=== PATIENT | female | born 1940 | race African-American/Black ===

== ENCOUNTER 2019-05-03 09:53 | Emergency (ER) | payer OTHER ==
[2019-05-03 10:06] VITALS: TEMP 97.8; BMI 20.9
--- NOTE | 2019-05-03 10:45 | PDOC ---
History of Present Illness - General Chief Complaint: Lightheaded Stated Complaint: DIZZNESS Time Seen by Provider: 05/03/19 10:45 History Source: Patient Exam Limitations: No Limitations - History of Present Illness Initial Comments: 79-year-old female with past medical history of hypertension, diabetes, COPD on home oxygen 2L at night time presented to the emergency department for room spinning episode for two days. Patient report on Monday night she ate a meal they had a lot of salt in it, had only to a couple bites, did not eat the rest of the night. She reported later that night she felt room spinning episodes that would occur more so when she rolled around in bed, or when she would stand up from bed. She reported morning around six or seven in the morning she felt the need to go to the bathroom, still felt the dizziness but figured she could hold onto something and not fall. She reported when she made it to the bathroom the rooms spinning episode occurred, causing her to fall backwards onto the ground. She reported during the fall she hit her right arm on a fan, but denied head injury. She denied headache, neck pain, back pain, chest pain, abdominal pain, upper or lower extremity pain, LOC, vomiting. She reported this in a minute dizziness is still occurring, prompted her to come see her and to apartment. She denied any recent illnesses, ringing in the ears, weakness, numbness, changes to gait, sensory change. ROS General: denied fever, chills, generalized weakness. HEENT: denied sore throat, rhinorrhea, ear pain. Cardiovascular: denied chest pain, palpitations, syncope, diaphoresis. Respiratory: denied shortness of breath, cough, sputum production, hemoptysis. Gastrointestinal: denied abdominal pain, nausea, vomiting, diarrhea, constipation, blood in stool. Genitourinary: denied dysuria, increased urinary frequency, hematuria, urinary incontinence, flank pain. Back: denied back pain. Musculoskeletal: denied joint pain, muscle pain, joint swelling. Neurological: admitted to dizziness. denied headache, numbness, tingling, weakness. Integumentary: denied rash, laceration, abrasion. Hematologic/Lymphatic: denied bruising or bleeding. PE Constitutional: Well-nourished, Well-developed, appearing stated age. HEENT: head is normocephalic, atraumatic. EOMI. PERRLA. Neck: supple. Full ROM. no midline C-spine tenderness to palpation. Cardiovascular: regular heart rhythm. no murmurs. no pericardial friction rub. Respiratory: clear to auscultation bilaterally. no crackles, rhonchi or wheezing. no stridor. Gastrointestinal: soft, nontender. normal bowel sounds. no rebound, guarding, masses. Extremities: peripheral pulses intact. no lower extremity edema. Neurological: alert. oriented x3. CN2-12 intact. 5/5 strength all extremities. full sensation all extremities and bilateral face. romberg negative. no ataxia. Psych: awake, alert, oriented x3. follows commands. answers questions appropriately. Elena Brady-Larue: reproduction of symptoms with looking rightward, right-beating nystagmus present. no reproduction of symptoms or nystagmus with looking leftward. NIH Stroke Scale - Last Known Well Date/Time & Onset Date Last Known Well: 05/01/19 Time Last Known Well: 18:00 - Initial Evaluation Level of consciousness: Alert Ask patient the month and their age: Answers both correctly Ask patient to open & close eyes; make fist and let go: Obeys both correctly Best gaze (horizontal eye movement): Normal Visual field testing: No visual field loss Facial paresis (Show teeth/raise eyebrows/close eyes tight): Normal symmetrical movement Motor Function: Left Arm: Normal Motor Function: Right Arm: Normal (extends arm 90 (or 45) degrees for 10 seconds without drift Motor Function: Left Leg: Normal (extends leg 30 degrees for 5 seconds without drift) Motor Function: Right Leg: Normal (extends leg 30 degrees for 5 seconds without drift) Limb Ataxia: No ataxia Sensory(Use pinprick test arms,legs,trunk,face/side to side): Normal Best language (Describe picture, name items, read sentences): No Aphasia Dysarthria (read several words): Normal articulation Extinction and Inattention: No abnormality - Total Score NIH Stroke Scale Score: 0 Past History - Past Medical History Allergies/Adverse Reactions: Allergies Allergy/AdvReac Type Severity Reaction Status Date / Time No Known Allergies Allergy Verified 05/03/19 10:08 Home Medications: Ambulatory Orders Calcium Carbonate/Vitamin D3 [Oyster Shell 500 mg + Vit D Tb] 1 each PO DAILY Cholecalciferol (Vitamin D3) [Vitamin D3] 5,000 unit PO DAILY 07/17/15 Diltiazem Cd [Cardizem Cd -] 180 mg PO DAILY 07/17/15 Furosemide [Lasix -] 40 mg PO BID 07/17/15 Losartan Potassium [Cozaar] 100 mg PO DAILY 07/17/15 Pantoprazole Sodium [Protonix] 40 mg PO DAILY 07/17/15 Potassium Chloride 10 meq PO BID 07/17/15 Ubidecarenone/Vit E Acet [Co Q-10 100 mg Softgel] 1 each PO DAILY 07/17/15 Meclizine HCl [Antivert -] 25 mg PO TID PRN #15 tablet 05/03/19 Rosuvastatin Calcium [Crestor] 40 mg PO HS 05/03/19 Umeclidinium [place] [Incruse Ellipta] 62.5 mcg IH ASDIR 05/03/19 Cardiac Disorders: Yes (afib) COPD: Yes Diabetes: Yes HTN: Yes Hypercholesterolemia: Yes - Psycho Social/Smoking Cessation Hx Smoking History: Unknown if ever smoked Have you smoked in the past 12 months: No Hx Alcohol Use: No Drug/Substance Use Hx: No Substance Use Type: None Hx Substance Use Treatment: No *Physical Exam - Vital Signs Last Vital Signs Temp Pulse Resp BP Pulse Ox 97.8 F 73 18 119/56 L 92 L 05/03/19 10:00 05/03/19 10:00 05/03/19 10:00 05/03/19 10:00 05/03/19 10:00 ED Treatment Course - LABORATORY CBC & Chemistry Diagram: 05/03/19 11:00 05/03/19 11:00 Medical Decision Making - Medical Decision Making 79 year old with above PMH presented to ED for room spinning episodes occuring for two days, also had recent fall. Initial Vital Signs Temp Pulse Resp BP Pulse Ox 97.8 F 73 18 119/56 L 92 L 05/03/19 10:00 05/03/19 10:00 05/03/19 10:00 05/03/19 10:00 05/03/19 10:00 Afebrile. No tachycardia. No tachypnea. Mild diastolic hypotension. Hypoxia on room air, hx COPD, on O2 at home. Labs ordered: CBC, CMP, troponin, UA/UC Imaging ordered: CT head Medications ordered: meclizine 25 mg PO once, normal saline bolus 1000 cc once EKG performed at 0959: rate 69, regular rhythm, normal axis, normal intervals, QTc 437, nonspecific ST changes. 05/03/19 12:09 Laboratory Last Values WBC 5.2 K/mm3 (4.0-10.0) 05/03/19 11:00 RBC 3.91 M/mm3 (3.60-5.2) 05/03/19 11:00 Hgb 12.2 GM/dL (10.7-15.3) 05/03/19 11:00 Hct 37.8 % (32.4-45.2) D 05/03/19 11:00 MCV 96.6 fl (80-96) H 05/03/19 11:00 MCH 31.1 pg (25.7-33.7) 05/03/19 11:00 MCHC 32.1 g/dl (32.0-36.0) 05/03/19 11:00 RDW 12.9 % (11.6-15.6) 05/03/19 11:00 Plt Count 200 K/MM3 (134-434) 05/03/19 11:00 MPV 10.2 fl (7.5-11.1) D 05/03/19 11:00 Absolute Neuts (auto) 3.7 K/mm3 (1.5-8.0) 05/03/19 11:00 Neutrophils % 71.2 % (42.8-82.8) 05/03/19 11:00 Lymphocytes % 19.9 % (8-40) 05/03/19 11:00 Monocytes % 7.8 % (3.8-10.2) 05/03/19 11:00 Eosinophils % 0.7 % (0-4.5) 05/03/19 11:00 Basophils % 0.4 % (0-2.0) 05/03/19 11:00 Nucleated RBC % 0 % (0-0) 05/03/19 11:00 Sodium 140 mmol/L (136-145) 05/03/19 11:00 Potassium 4.0 mmol/L (3.5-5.1) 05/03/19 11:00 Chloride 106 mmol/L (98-107) 05/03/19 11:00 Carbon Dioxide 30 mmol/L (21-32) 05/03/19 11:00 Anion Gap 5 MMOL/L (8-16) L 05/03/19 11:00 BUN 17.0 mg/dL (7-18) 05/03/19 11:00 Creatinine 1.0 mg/dL (0.55-1.3) 05/03/19 11:00 Est GFR (CKD-EPI)AfAm 62.05 05/03/19 11:00 Est GFR (CKD-EPI)NonAf 53.54 05/03/19 11:00 Random Glucose 139 mg/dL (74-106) H 05/03/19 11:00 Calcium 8.9 mg/dL (8.5-10.1) 05/03/19 11:00 Total Bilirubin 0.5 mg/dL (0.2-1) 05/03/19 11:00 AST 28 U/L (15-37) 05/03/19 11:00 ALT 31 U/L (13-61) 05/03/19 11:00 Alkaline Phosphatase 81 U/L (45-117) 05/03/19 11:00 Troponin I < 0.02 ng/ml (0.00-0.05) 05/03/19 11:00 Total Protein 7.4 g/dl (6.4-8.2) 05/03/19 11:00 Albumin 3.6 g/dl (3.4-5.0) 05/03/19 11:00 Urine Color Yellow 05/03/19 11:19 Urine Appearance Clear 05/03/19 11:19 Urine pH 7.5 (5.0-8.0) 05/03/19 11:19 Ur Specific [place] 1.015 (1.010-1.035) 05/03/19 11:19 Urine Protein Negative (NEGATIVE) 05/03/19 11:19 Urine Glucose (UA) Negative (NEGATIVE) 05/03/19 11:19 Urine Ketones Negative (NEGATIVE) 05/03/19 11:19 Urine Blood Negative (NEGATIVE) 05/03/19 11:19 Urine Nitrite Negative (NEGATIVE) 05/03/19 11:19 Urine Bilirubin Negative (NEGATIVE) 05/03/19 11:19 Urine Urobilinogen 1.0 mg/dL (0.2-1.0) 05/03/19 11:19 Ur Leukocyte Esterase Trace (NEGATIVE) 05/03/19 11:19 Urine WBC (Auto) 3 /hpf (0-5) 05/03/19 11:19 Urine RBC (Auto) 0 /hpf (0-4) 05/03/19 11:19 Urine Casts (Auto) 1 /lpf (0-8) 05/03/19 11:19 U Epithel Cells (Auto) 0.8 /HPF (0-5/HPF) 05/03/19 11:19 Urine Bacteria (Auto) 3.6 /hpf (NEGATIVE) 05/03/19 11:19 Blood Type Cancelled 05/03/19 11:20 Antibody Screen Cancelled 05/03/19 11:20 CT head report: Name: RAGHU GUERRERO DEPARTMENT OF RADIOLOGY Phys: Kiah Barber RESIDENT : 1940 Age: 79 Sex: F [facility] Acct: [id number] Loc: [address] Exam Date: 05/03/19 Status: [place] [address] Unit Number: [id number] EXAM#: TYPE/EXAM: RESULT: [id number] CT/HEAD CT WITHOUT CONTRAST REASON FOR THE STUDY. Status post fall yesterday. CT SCAN OF THE BRAIN C-. COMPARED STUDY. None. FINDINGS. Serial axial images of the brain were obtained from foramen magnum to the cranial vertex without intravenous contrast with coronal, sagittal reconstruction. There is no evidence of acute subarachnoid hemorrhage, acute intra-axial or extra-axial fluid collection consistent with subdural or epidural hematoma. No mass effect, midline shift, acute territorial ischemic changes, herniation or edema is present. Normal [place] matter white matter differentiation. The cortical sulci, sylvian fissures, perimesencephalic cisterns are not effaced. Loss of the volume of the brain parenchyma with age- related involutional changes. Examination of the bone windows show no fracture. The visualized paranasal sinuses and mastoid air cells are clear. Intracranial vascular calcifications are noted IMPRESSION. No evidence of acute intracranial hemorrhage, edema, midline shift, mass effect, or skull fracture. No CT evidence of acute territorial ischemic changes. Reported By: Antonio Stapleton MD 05/03/19 1158 05/03/19 12:17 Results explained to patient and family at bedside. Pt reported room-spinning much improved. Elena-Hallpike repeated, only mild sense of dizziness much improved from prior examination. Pt ambulated well unassisted. Pt discharged, recommended to F/U with PCP promptly. Prescribed Meclizine. Return precautions for CVA given. Discharge - Discharge Information Problems reviewed: Yes Clinical Impression/Diagnosis: Vertigo, Dizziness Condition: Improved Disposition: HOME - Admission No - Additional Discharge Information Prescriptions: Meclizine HCl [Antivert -] 25 mg PO TID PRN #15 tablet PRN Reason: Vertigo - Follow up/Referral Referrals: Parker Turner [Primary Care Provider] - - Patient Discharge Instructions Patient Printed Discharge Instructions: DI for Vertigo Additional Instructions: Follow up with your primary care doctor within 3 days regarding your Emergency Room visit. Your care is not complete until you follow up. I have prescribed you Meclizine for dizziness, take as needed as indicated on label. Drink lots of fluids to stay hydrated. Get at least 8 hours of sleep at night. Return to the Emergency Department for increasing dizziness despite taking Meclizine, continuous vomiting, chest pain, shortness of breath, weakness, numbness, tingling, visual or speech changes, change to gait, facial drooping, or any other new, worsening or concerning symptoms. - Post Discharge Activity
[2019-05-03] MEDS ORDERED: MECLIZINE HCL 25 MG TABLET (FP) PO ONE (11:10)
[2019-05-03] MEDS ORDERED: SODIUM CHLORIDE 1,000 ML IV STA (11:10)
[2019-05-03] MEDS ORDERED: MECLIZINE HCL 25 MG TABLET (FP) ONE (11:15)
[2019-05-03 11:30] LABS: BASO % 0.4 % (0-2.0); EOS % 0.7 % (0-4.5); HEMATOCRIT 37.8 % (32.4-45.2); HEMOGLOBIN 12.2 GM/dL (10.7-15.3); LYMPH % 19.9 % (8-40); MCH 31.1 pg (25.7-33.7); MCHC 32.1 g/dl (32.0-36.0); MEAN CELL VOLUME 96.6 fl (80-96); MEAN PLT VOLUME 10.2 fl (7.5-11.1); MONO % 7.8 % (3.8-10.2); NEUT % 71.2 % (42.8-82.8); PLATELET COUNT 200 K/MM3 (134-434); RBC 3.91 M/mm3 (3.60-5.2); RDW 12.9 % (11.6-15.6); WHITE BLOOD COUNT 5.2 K/mm3 (4.0-10.0)
[2019-05-03 11:40] LABS: EPI CELLS 0.8 /HPF (0-5/HPF); HYALINE CASTS 1 /lpf (0-8); PH,URINE 7.5 (5.0-8.0); URINE APPEARANCE CLEAR; URINE BACTERIA 3.6 /hpf (NEGATIVE); URINE BILIRUBIN NEGATIVE (NEGATIVE); URINE COLOR YELLOW; URINE GLUCOSE (UA) NEGATIVE (NEGATIVE); URINE KETONE NEGATIVE (NEGATIVE); URINE LEUK ESTERASE TRACE (NEGATIVE); URINE NITRITE NEGATIVE (NEGATIVE); URINE PROTEIN NEGATIVE (NEGATIVE); URINE RBC 0 /hpf (0-4); URINE WBC 3 /hpf (0-5)
[2019-05-03 12:07] LABS: ALBUMIN 3.6 g/dl (3.4-5.0); ALK PHOS 81 U/L (45-117); ANION GAP 5 MMOL/L (8-16); BILIRUBIN,TOTAL 0.5 mg/dL (0.2-1); CALCIUM 8.9 mg/dL (8.5-10.1); CHLORIDE 106 mmol/L (98-107); CO2 30 mmol/L (21-32); GLUCOSE,RANDOM 139 mg/dL (74-106); SGOT/AST 28 U/L (15-37); SGPT/ALT 31 U/L (13-61); SODIUM 140 mmol/L (136-145); TOT PROT 7.4 g/dl (6.4-8.2)
--- NOTE | 2019-05-03 12:11 | PDOC ---
Documentation entered by Danielle Luque SCRIBE, acting as scribe for Enrique Horne MD. Enrique Horne MD: This documentation has been prepared by the Rebel hyde Xhesika, SCRIBE, under my direction and personally reviewed by me in its entirety. I confirm that the documentation accurately reflects all work, treatment, procedures, and medical decision making performed by me. Attending Attestation - Resident Resident Name: Kiah Barber - ED Attending Attestation I have performed the following: I have examined & evaluated the patient, The case was reviewed & discussed with the resident, I agree w/resident's findings & plan, Exceptions are as noted - HPI HPI: 05/03/19 11:11 The patient is a 79 year old male with a PMH of COPD, HLD, HTN, DM, and Afib who presents to the ED with dizziness after dinner x3days. Pt notes on 05/02/19, she endorsed a second episode, similar to her first episode when she got up to go to the bathroom and fell to the floor. Pt denies passing out, hitting head or LOC. Pt describes her dizziness as room spinning, intermittent , worse when rolling/getting out of bed and standing up and lasts fo ra few minutes before resolving. pt denies any double vision, dysuarthria, n/v, headche , neck pain, papiations, fever/chills, focal numbness/tingling/weakness, diarrhea, melena, bpr. Allergies: NKDA PCP: Parker Louie - Physicial Exam PE: 05/03/19 11:18 GENERAL: The patient is awake, alert, and fully oriented, Nontoxic - in no acute distress. HEAD: Normocephalic, atraumatic. EYES: extraocular movements intact, sclera anicteric, conjunctiva clear. ENT: Normal voice, Moist mucous membranes. NECK: Normal range of motion, supple without lymphadenopathy, JVD, or masses. LUNGS: Breath sounds equal, clear to auscultation bilaterally. No wheezes, no crackles, no rales. HEART: Regular rate and rhythm, normal S1 and S2 without murmur, rub or gallop. ABDOMEN: Soft, nontender, normoactive bowel sounds. No guarding, no rebound. No masses. EXTREMITIES: Normal range of motion, no edema. No clubbing or cyanosis. No cords, erythema, or tenderness. PSYCH: Normal mood, normal affect. SKIN: Warm, Dry, normal turgor, no rashes or lesions noted. NEURO: Mental status: The patient is oriented x3. Cranial nerves: Cranial nerves II through XII are intact Motor: The upper extremities are 5 over 5 in all muscle groups. The lower extremities are 5 over 5 in all muscle groups. Negative pronator drift Sensation: Sensation is intact to light touch throughout. romberg negative Cerebellar: Devcwo-[id number]-[id number] is normal in both upper extremities. Heel-knee- morrison is normal in both lower extremities. rapid alternating movements are normal. - Medical Decision Making 05/03/19 11:06 Suspect possible peripheral vertigo, no signs or symptoms suggestive of central vertigo, neuro intact with no lateralizing or cerebellar findings. Positive [place] -Hallpike Will obtain CT based on the patient's age We will treat with meclizine will reassess 05/03/19 12:45 CT negative, labs unremarkable The patient is able to ambulate feeling slightly improved Will discharge patient with outpatient management Return precautions were discussed
[2019-05-03 12:25] LABS: PROTHROMBIN TIME (PATIENT) 11.8 SEC (9.7-13.0)
[2019-05-03 12:28] LABS: ACTIVATED PTT 30.2 SECONDS (25.2-36.5)
[2019-05-03 13:07] VITALS: BP 120/75; PULSE 75
--- NOTE | 2019-05-03 13:42 | EKG ---
Test Reason : Blood Pressure : / mmHG Vent. Rate : 069 BPM Atrial Rate : 069 BPM P-R Int : 124 ms QRS Dur : 082 ms QT Int : 408 ms P-R-T Axes : 075 081 066 degrees QTc Int : 437 ms NORMAL SINUS RHYTHM SEPTAL INFARCT , AGE UNDETERMINED ABNORMAL ECG WHEN COMPARED WITH ECG OF 19-JUL-2015 08:33, VENT. RATE HAS DECREASED BY 45 BPM SEPTAL INFARCT IS NOW PRESENT NONSPECIFIC T WAVE ABNORMALITY NO LONGER EVIDENT IN INFERIOR LEADS Confirmed by AN SARKAR MD ([id number]) on 05/03/2019 1:41:51 PM Referred By: Confirmed By:AN SARKAR MD
== END 2019-05-03 13:00 | disposition home or self-care (01) ==
LOC: JER 09:53
DX: R42 Dizziness and giddiness (principal); I10 Essential (primary) hypertension; I48.91 Unspecified atrial fibrillation; E11.9 Type 2 diabetes mellitus without complications; J44.9 Chronic obstructive pulmonary disease, unspecified; Z99.81 Dependence on supplemental oxygen; E78.00 Pure hypercholesterolemia, unspecified
CPT/HCPCS: 36415; 70450-TC; 80053; 81003; 84484; 85025; 85610; 85730; 87086; 93005; 93010; 99283-25

== ENCOUNTER 2020-08-02 14:34 | Inpatient (IN) | payer OTHER ==
[2020-08-02 14:40] VITALS: BMI 17.9
[2020-08-02] MEDS ORDERED: SODIUM CHLORIDE 0.9% 1000 ML INFUS.BAG IV ONE (16:21)
[2020-08-02 16:43] LABS: BASO % 0.1 % (0-2.0); HEMATOCRIT 21.7 % (32.4-45.2); LYMPH % 2.8 % (8-40); MCHC 28.5 g/dl (32.0-36.0); MEAN CELL VOLUME 67.9 fl (80-96); MEAN PLT VOLUME 8.2 fl (7.5-11.1); MONO % 4.8 % (3.8-10.2); NEUT % 92.3 % (42.8-82.8); PLATELET COUNT 250 K/MM3 (134-434); RDW 18.7 % (11.6-15.6); WHITE BLOOD COUNT 13.3 K/mm3 (4.0-10.0)
[2020-08-02 16:46] LABS: INR 1.02 (0.83-1.09); PROTHROMBIN TIME (PATIENT) 12.3 SEC (9.7-13.0)
[2020-08-02 16:49] LABS: ACTIVATED PTT 25.4 SECONDS (25.2-36.5)
[2020-08-02 16:54] LABS: MCH 19.3 pg (25.7-33.7)
[2020-08-02 16:56] LABS: HEMOGLOBIN 6.2 GM/dL (10.7-15.3)
[2020-08-02 16:59] LABS: CHLORIDE 98 mmol/L (98-107); SODIUM 141 mmol/L (136-145)
[2020-08-02 17:01] LABS: ALBUMIN 3.7 g/dl (3.4-5.0); CALCIUM 9.3 mg/dL (8.5-10.1); CO2 36 mmol/L (21-32)
[2020-08-02 17:02] LABS: BLOOD UREA NITROGEN 21.9 mg/dL (7-18); GLUCOSE,RANDOM 143 mg/dL (74-106); MAGNESIUM 2.7 mg/dL (1.8-2.4)
[2020-08-02 17:04] LABS: SGPT/ALT 23 U/L (13-61)
[2020-08-02 17:05] LABS: CREATININE 1.5 mg/dL (0.55-1.3); SGOT/AST 21 U/L (15-37)
[2020-08-02 17:06] LABS: BILIRUBIN,TOTAL 0.5 mg/dL (0.2-1); TOT PROT 7.5 g/dl (6.4-8.2)
[2020-08-02 17:07] LABS: ALK PHOS 70 U/L (45-117)
[2020-08-02 17:13] LABS: ANION GAP 6 MMOL/L (8-16)
[2020-08-02 17:15] LABS: POTASSIUM 2.9 mmol/L (3.5-5.1)
[2020-08-02] MEDS ORDERED: POTASSIUM CHLORIDE TABS 20 MEQ TABLET.ER (FP) PO ONE (17:17)
[2020-08-02 17:37] LABS: ANISOCYTOSIS 3+; MACROCYTOSIS 0; OVALOCYTE 1+; PLATELET ESTIMATE NORMAL
[2020-08-02] MEDS ORDERED: FAMOTIDINE 20 MG TABLET PO ONE (18:37)
[2020-08-02] MEDS ORDERED: POTASSIUM CHLORIDE ORAL LIQUID 20 MEQ/15 ML ONE (18:41)
[2020-08-02] MEDS ORDERED: FAMOTIDINE 20 MG TABLET ONE (19:21)
[2020-08-02] MEDS ORDERED: KCL 10 MEQ IVPB 10 MEQ/100 ML INFUS.BAG IVPB ONE ×2 (21:23→22:27)
[2020-08-02] MEDS: KCL 10 MEQ IVPB 10 MEQ/100 ML INFUS.BAG IVPB SCH ×2 (21:26→22:29)
[2020-08-02] MEDS: POLYETHYLENE GLYCOL 3350 119 GM BTL PO SCH (21:36)
[2020-08-02] MEDS: INSULIN SLIDING SCALE (NOVOLOG) 1 VIAL SQ SCH (22:20)
[2020-08-02 23:43] LABS: EPI CELLS 23 /uL (0-25.1); HYALINE CASTS 1 /uL (0-3.1); URINE APPEARANCE CLEAR; URINE BACTERIA 54 /uL (0-1359); URINE BILIRUBIN NEGATIVE (NEGATIVE); URINE COLOR YELLOW; URINE GLUCOSE (UA) NEGATIVE (NEGATIVE); URINE KETONE NEGATIVE (NEGATIVE); URINE LEUK ESTERASE 1+ (NEGATIVE); URINE NITRITE NEGATIVE (NEGATIVE); URINE PROTEIN 2+ (NEGATIVE); URINE RBC 6 /uL (0-23.9); URINE WBC 23 /uL (0-25.8)
[2020-08-02 23:48] LABS: RETICULOCYTES 1.15 % (0.5-1.5)
[2020-08-03 00:04] LABS: IRON SERUM 10 ug/dL (50-175); TOTAL IRON BINDING CAPACITY 489 ug/dL (250-450)
[2020-08-03] MEDS ORDERED: KCL 10 MEQ IVPB 10 MEQ/100 ML INFUS.BAG IVPB ONE (01:07)
[2020-08-03] MEDS: KCL 10 MEQ IVPB 10 MEQ/100 ML INFUS.BAG IVPB SCH (01:08)
[2020-08-03] MEDS ORDERED: HEPARIN NA (PORCINE) 5,000 UNITS/ML 1ML VIAL ONE ×2 (02:03→13:21)
[2020-08-03] MEDS: HEPARIN NA (PORCINE) 5,000 UNITS/ML 1ML VIAL SQ SCH ×4 (02:05→22:08)
[2020-08-03] MEDS ORDERED: ACETAMINOPHEN 325 MG TABLET (FP) ONE (05:53)
[2020-08-03] MEDS: ACETAMINOPHEN 325 MG TABLET (FP) PO PRN ×2 (05:55→22:09)
[2020-08-03] MEDS: INSULIN SLIDING SCALE (NOVOLOG) 1 VIAL SQ SCH ×4 (08:00→22:09)
[2020-08-03 08:17] LABS: BASO % 0.3 % (0-2.0); EOS % 0.4 % (0-4.5); HEMATOCRIT 27.5 % (32.4-45.2); HEMOGLOBIN 8.9 GM/dL (10.7-15.3); LYMPH % 10.8 % (8-40); MCH 23.3 pg (25.7-33.7); MCHC 32.5 g/dl (32.0-36.0); MEAN CELL VOLUME 71.7 fl (80-96); MEAN PLT VOLUME 8.8 fl (7.5-11.1); MONO % 7.8 % (3.8-10.2); NEUT % 80.7 % (42.8-82.8); PLATELET COUNT 211 K/MM3 (134-434); RBC 3.84 M/mm3 (3.60-5.2); RDW 20.1 % (11.6-15.6); WHITE BLOOD COUNT 9.3 K/mm3 (4.0-10.0)
[2020-08-03 08:18] LABS: POTASSIUM 3.7 mmol/L (3.5-5.1)
[2020-08-03 08:28] LABS: ALBUMIN 3.1 g/dl (3.4-5.0)
[2020-08-03 08:31] LABS: CREATININE 1.3 mg/dL (0.55-1.3)
[2020-08-03 08:32] LABS: BLOOD UREA NITROGEN 21.2 mg/dL (7-18); CALCIUM 8.6 mg/dL (8.5-10.1); TOT PROT 6.3 g/dl (6.4-8.2)
[2020-08-03 08:34] LABS: MAGNESIUM 2.4 mg/dL (1.8-2.4)
[2020-08-03 08:36] LABS: PHOSPHOROUS 2.9 mg/dL (2.5-4.9)
[2020-08-03 08:37] LABS: BILIRUBIN,TOTAL 1.2 mg/dL (0.2-1)
[2020-08-03] MEDS ORDERED: POTASSIUM CHLORIDE TABS 20 MEQ TABLET.ER (FP) PO ONE ×2 (10:00→13:21)
[2020-08-03] MEDS ORDERED: MAGNESIUM CITRATE 300 ML BOTTLE PO ONE (12:03)
[2020-08-03] MEDS: POLYETHYLENE GLYCOL 3350 119 GM BTL PO SCH ×2 (13:18→22:08)
[2020-08-04] MEDS: INSULIN SLIDING SCALE (NOVOLOG) 1 VIAL SQ SCH ×4 (06:01→21:06)
[2020-08-04 07:18] LABS: BASO % 0.5 % (0-2.0); HEMOGLOBIN 9.4 GM/dL (10.7-15.3); MCH 22.5 pg (25.7-33.7); MCHC 31.4 g/dl (32.0-36.0); MEAN CELL VOLUME 71.6 fl (80-96); MEAN PLT VOLUME 8.1 fl (7.5-11.1); MONO % 7.8 % (3.8-10.2); NEUT % 80.7 % (42.8-82.8); PLATELET COUNT 214 K/MM3 (134-434); RBC 4.19 M/mm3 (3.60-5.2); WHITE BLOOD COUNT 11.1 K/mm3 (4.0-10.0)
[2020-08-04 07:35] LABS: POTASSIUM 3.6 mmol/L (3.5-5.1)
[2020-08-04 07:40] LABS: BLOOD UREA NITROGEN 16.8 mg/dL (7-18); CALCIUM 8.6 mg/dL (8.5-10.1)
[2020-08-04 07:41] LABS: MAGNESIUM 2.6 mg/dL (1.8-2.4)
[2020-08-04 07:43] LABS: PHOSPHOROUS 3.4 mg/dL (2.5-4.9)
[2020-08-04] MEDS ORDERED: IRON SUCROSE INJECTION 100 MG in SODIUM CHLORIDE 95 ML IVPB ONE (11:35)
[2020-08-04] MEDS: POLYETHYLENE GLYCOL 3350 119 GM BTL PO SCH ×2 (12:34→21:03)
[2020-08-04] MEDS ORDERED: SODIUM CHLORIDE 0.9% 1000 ML INFUS.BAG IV SCH (14:30)
[2020-08-04] MEDS ORDERED: SODIUM CHLORIDE 1,000 ML IV SCH (15:00)
[2020-08-04] MEDS ORDERED: BISACODYL 5 MG TABLET.DR (FP) PO ONE (15:00)
[2020-08-04] MEDS: PANTOPRAZOLE 40 MG TABLET PO SCH (15:25)
[2020-08-04] MEDS ORDERED: PEG 3350/NA SULF BICARB CL/KCL 4000 ML SOLN.RECON PO ONE (16:00)
[2020-08-05] MEDS: INSULIN SLIDING SCALE (NOVOLOG) 1 VIAL SQ SCH ×4 (06:14→22:08)
[2020-08-05 07:22] LABS: BASO % 1.4 % (0-2.0); EOS % 2.1 % (0-4.5); HEMATOCRIT 29.8 % (32.4-45.2); HEMOGLOBIN 9.2 GM/dL (10.7-15.3); LYMPH % 11.5 % (8-40); MCH 22.7 pg (25.7-33.7); MCHC 30.8 g/dl (32.0-36.0); MEAN CELL VOLUME 73.6 fl (80-96); MEAN PLT VOLUME 8.5 fl (7.5-11.1); MONO % 7.3 % (3.8-10.2); NEUT % 77.7 % (42.8-82.8); PLATELET COUNT 203 K/MM3 (134-434); RBC 4.05 M/mm3 (3.60-5.2); WHITE BLOOD COUNT 9.2 K/mm3 (4.0-10.0)
[2020-08-05 07:47] LABS: POTASSIUM 3.3 mmol/L (3.5-5.1)
[2020-08-05 08:28] LABS: BLOOD UREA NITROGEN 11.3 mg/dL (7-18); CALCIUM 8.7 mg/dL (8.5-10.1)
[2020-08-05 08:31] LABS: CREATININE 0.9 mg/dL (0.55-1.3)
[2020-08-05 08:33] LABS: BILIRUBIN,TOTAL 0.6 mg/dL (0.2-1); TOT PROT 6.4 g/dl (6.4-8.2)
[2020-08-05] MEDS ORDERED: IRON SUCROSE INJECTION 100 MG in SODIUM CHLORIDE 95 ML IVPB ONE (11:00)
[2020-08-05] MEDS: PANTOPRAZOLE 40 MG TABLET PO SCH ×2 (11:35→13:13)
[2020-08-05] MEDS: POLYETHYLENE GLYCOL 3350 119 GM BTL PO SCH ×2 (11:35→21:57)
[2020-08-05] MEDS: D5-1/2NS+10 MEQ KCL - 10 MEQ/1,000 ML INFUS.BAG IV SCH ×2 (11:37→12:08)
[2020-08-05] MEDS ORDERED: DEXTROSE 50%-WATER 25 GM/50 ML DISP.SYRIN ONE (11:51)
[2020-08-05] MEDS ORDERED: POTASSIUM CHLORIDE ORAL LIQUID 20 MEQ/15 ML PO ONE (12:00)
[2020-08-05] MEDS ORDERED: DEXTROSE 50%-WATER - 25 GM/50 ML VIAL IVPUSH ONE (12:12)
[2020-08-05] MEDS ORDERED: PEG 3350/NA SULF BICARB CL/KCL 4000 ML SOLN.RECON PO ONE ×2 (13:30→17:00)
[2020-08-05] MEDS ORDERED: POTASSIUM CHLORIDE TABS 20 MEQ TABLET.ER (FP) PO ONE (14:13)
[2020-08-05] MEDS: HEPARIN NA (PORCINE) 5,000 UNITS/ML 1ML VIAL SQ SCH ×2 (16:11→21:56)
[2020-08-06] MEDS: INSULIN SLIDING SCALE (NOVOLOG) 1 VIAL SQ SCH ×3 (06:04→21:36)
[2020-08-06 08:28] LABS: POTASSIUM 3.4 mmol/L (3.5-5.1)
[2020-08-06 08:36] LABS: ALBUMIN 2.7 g/dl (3.4-5.0)
[2020-08-06 08:37] LABS: BLOOD UREA NITROGEN 5.3 mg/dL (7-18); CALCIUM 8.6 mg/dL (8.5-10.1); MAGNESIUM 2.3 mg/dL (1.8-2.4)
[2020-08-06 08:40] LABS: CREATININE 0.7 mg/dL (0.55-1.3)
[2020-08-06 08:41] LABS: BILIRUBIN,TOTAL 0.6 mg/dL (0.2-1); TOT PROT 5.5 g/dl (6.4-8.2)
[2020-08-06] MEDS: PANTOPRAZOLE 40 MG TABLET PO SCH (10:02)
[2020-08-06] MEDS: LOSARTAN POTASSIUM 25 MG TABLET PO SCH (10:03)
[2020-08-06] MEDS: POLYETHYLENE GLYCOL 3350 119 GM BTL PO SCH ×2 (10:03→21:36)
[2020-08-06] MEDS: KCL 10 MEQ IVPB 10 MEQ/100 ML INFUS.BAG IVPB SCH ×3 (11:24→16:15)
[2020-08-06] MEDS: D5-1/2NS+10 MEQ KCL - 10 MEQ/1,000 ML INFUS.BAG IV SCH (11:24)
[2020-08-06] MEDS: HEPARIN NA (PORCINE) 5,000 UNITS/ML 1ML VIAL SQ SCH ×2 (14:00→21:32)
[2020-08-06] MEDS ORDERED: SENNOSIDES 8.6MG TABLET (FP) PO PRN (14:37)
[2020-08-06] MEDS ORDERED: PT OWN MED DRAWER 7, Y5N ONE (17:34)
[2020-08-07] MEDS: D5-1/2NS+10 MEQ KCL - 10 MEQ/1,000 ML INFUS.BAG IV SCH ×2 (06:43→11:19)
[2020-08-07] MEDS: INSULIN SLIDING SCALE (NOVOLOG) 1 VIAL SQ SCH ×3 (06:44→16:44)
[2020-08-07] MEDS: HEPARIN NA (PORCINE) 5,000 UNITS/ML 1ML VIAL SQ SCH ×2 (06:44→14:29)
[2020-08-07] MEDS: PANTOPRAZOLE 40 MG TABLET PO SCH (09:57)
[2020-08-07] MEDS: LOSARTAN POTASSIUM 25 MG TABLET PO SCH (09:57)
[2020-08-07] MEDS: POLYETHYLENE GLYCOL 3350 119 GM BTL PO SCH (09:58)
[2020-08-07 18:46] VITALS: BP 118/60; PULSE 72; TEMP 98.2
== END 2020-08-07 19:08 | disposition home or self-care (01) | DRG 378 ==
LOC: JER 14:34 → JERBED 19:35 → J4W 08-03 16:35
PROVIDERS: ADMIT Internal Medicine; ATTEND Internal Medicine
PROC: 30233N1 Transfusion of Nonautologous Red Blood Cells into Peripheral Vein, Percutaneous Approach (ICD-10-PCS; 2020-08-02)
PROC: 0DB68ZX Excision of Stomach, Via Natural or Artificial Opening Endoscopic, Diagnostic (ICD-10-PCS; 2020-08-04)
PROC: 0DB78ZX Excision of Stomach, Pylorus, Via Natural or Artificial Opening Endoscopic, Diagnostic (ICD-10-PCS; 2020-08-04)
PROC: 0DBL8ZX Excision of Transverse Colon, Via Natural or Artificial Opening Endoscopic, Diagnostic (ICD-10-PCS; principal; 2020-08-06 13:00)
DX: K29.71 Gastritis, unspecified, with bleeding (principal); N17.9 Acute kidney failure, unspecified; I50.30 Unspecified diastolic (congestive) heart failure; D50.0 Iron deficiency anemia secondary to blood loss (chronic); H81.10 Benign paroxysmal vertigo, unspecified ear; K25.9 Gastric ulcer, unspecified as acute or chronic, without hemorrhage or perforation; K57.90 Diverticulosis of intestine, part unspecified, without perforation or abscess without bleeding; J44.9 Chronic obstructive pulmonary disease, unspecified; K64.8 Other hemorrhoids; E87.6 Hypokalemia; E86.0 Dehydration; R55 Syncope and collapse; K40.90 Unilateral inguinal hernia, without obstruction or gangrene, not specified as recurrent; E11.9 Type 2 diabetes mellitus without complications; E78.5 Hyperlipidemia, unspecified; E11.649 Type 2 diabetes mellitus with hypoglycemia without coma; I48.0 Paroxysmal atrial fibrillation; I25.10 Atherosclerotic heart disease of native coronary artery without angina pectoris; I65.29 Occlusion and stenosis of unspecified carotid artery; I11.0 Hypertensive heart disease with heart failure; W18.30XA Fall on same level, unspecified, initial encounter; Y92.090 Kitchen in other non-institutional residence as the place of occurrence of the external cause; Z99.81 Dependence on supplemental oxygen
CPT/HCPCS: 36415; 36430; 36511; 70450-TC; 71045-TC-FY; 72100-TC-FY; 72125-TC; 72170-TC-FY; 76775-TC; 80048; 80053; 80061; 81003; 82272; 82550; 82728; 82962; 83540; 83550; 83721; 83735; 84100; 84484; 85025; 85045; 85610; 85730; 86850; 86900; 86901; 86922; 87086; 88305-TC; 93005; 93010; 93306-TC; 94660; 97116-GP; 97161-GP; 99285-25; C9803; J1644; J1756; P9038; P9058; U0003; U0005

== ENCOUNTER 2020-08-15 12:53 | Observation (INO) | payer OTHER ==
[2020-08-15] MEDS ORDERED: LACTATED RINGERS SOLUTION 1000 ML INFUS.BAG IV ONE (13:42)
[2020-08-15 14:39] LABS: BASO % 0.3 % (0-2.0); EOS % 0.5 % (0-4.5); HEMATOCRIT 32.6 % (32.4-45.2); LYMPH % 10.4 % (8-40); MCH 23.4 pg (25.7-33.7); MCHC 30.7 g/dl (32.0-36.0); MEAN CELL VOLUME 76.3 fl (80-96); MEAN PLT VOLUME 9.1 fl (7.5-11.1); MONO % 8.4 % (3.8-10.2); NEUT % 80.4 % (42.8-82.8); PLATELET COUNT 383 K/MM3 (134-434); RBC 4.28 M/mm3 (3.60-5.2); WHITE BLOOD COUNT 7.5 K/mm3 (4.0-10.0)
[2020-08-15] MEDS ORDERED: ONDANSETRON 4 MG/2 ML VIAL IVPUSH ONE (14:49)
[2020-08-15] MEDS ORDERED: ONDANSETRON 4 MG/2 ML VIAL ONE (14:54)
[2020-08-15 14:59] LABS: CHLORIDE 78 mmol/L (98-107); SODIUM 130 mmol/L (136-145)
[2020-08-15 15:01] LABS: CALCIUM 9.5 mg/dL (8.5-10.1)
[2020-08-15 15:03] LABS: GLUCOSE,RANDOM 226 mg/dL (74-106)
[2020-08-15 15:05] LABS: BILIRUBIN,DIRECT 0.1 mg/dL (0.0-0.2); CREATININE 1.4 mg/dL (0.55-1.3); SGOT/AST 16 U/L (15-37); SGPT/ALT 16 U/L (13-61)
[2020-08-15 15:06] LABS: BILIRUBIN,TOTAL 0.3 mg/dL (0.2-1)
[2020-08-15 15:08] LABS: LDH 231 U/L (84-246)
[2020-08-15 15:12] LABS: ALBUMIN 3.6 g/dl (3.4-5.0); ALK PHOS 108 U/L (45-117); ANION GAP 8 MMOL/L (8-16); BLOOD UREA NITROGEN 30.6 mg/dL (7-18); CO2 > 45 mmol/L (21-32); TOT PROT 7.6 g/dl (6.4-8.2)
[2020-08-15] MEDS ORDERED: POTASSIUM CHLORIDE TABS 20 MEQ TABLET.ER (FP) PO ONE ×2 (15:35→15:56)
[2020-08-15] MEDS ORDERED: KCL 10 MEQ IVPB 10 MEQ/100 ML INFUS.BAG IVPB SCH (15:45)
[2020-08-15 15:54] LABS: ANISOCYTOSIS 0; MACROCYTOSIS 0; PLATELET ESTIMATE NORMAL
[2020-08-15] MEDS: SODIUM CHLORIDE 0.9%/KCL 20 MEQ/1,000 ML INFUS.BAG IV SCH (16:30)
[2020-08-15] MEDS ORDERED: KCL 10 MEQ IVPB 10 MEQ/100 ML INFUS.BAG IVPB ONE ×2 (17:59→19:45)
[2020-08-15] MEDS: KCL 10 MEQ IVPB 10 MEQ/100 ML INFUS.BAG IVPB SCH ×4 (18:00→21:27)
[2020-08-16 08:06] LABS: CHLORIDE 88 mmol/L (98-107); SODIUM 136 mmol/L (136-145)
[2020-08-16 08:07] LABS: CALCIUM 8.9 mg/dL (8.5-10.1)
[2020-08-16 08:09] LABS: BLOOD UREA NITROGEN 22.9 mg/dL (7-18); GLUCOSE,RANDOM 99 mg/dL (74-106); MAGNESIUM 2.6 mg/dL (1.8-2.4)
[2020-08-16 08:24] LABS: ANION GAP 3 MMOL/L (8-16); CO2 > 45 mmol/L (21-32)
[2020-08-16] MEDS ORDERED: MECLIZINE HCL 25 MG TABLET (FP) PO PRN (08:31)
[2020-08-16] MEDS ORDERED: PT OWN MED DRAWER 7, Y5N ONE (10:12)
[2020-08-16] MEDS: SODIUM CHLORIDE 0.9%/KCL 20 MEQ/1,000 ML INFUS.BAG IV SCH ×3 (10:15→21:51)
[2020-08-16] MEDS: PANTOPRAZOLE 40 MG TABLET PO SCH (10:15)
[2020-08-16] MEDS: ENOXAPARIN NA (PORCINE) 30 MG/0.3 ML DISP.SYRIN SQ SCH (10:15)
[2020-08-16] MEDS: POTASSIUM CHLORIDE TABS 20 MEQ TABLET.ER (FP) PO SCH ×2 (10:15→17:40)
[2020-08-16] MEDS: CALCIUM 500MG/VIT-D 200 UNITS COMBO TABLET (FP) PO SCH (10:15)
[2020-08-16 11:30] LABS: EPI CELLS 9 /uL (0-25.1); HYALINE CASTS 1 /uL (0-3.1); PH,URINE 7.5 (5.0-8.0); URINE APPEARANCE CLEAR; URINE BACTERIA 29 /uL (0-1359); URINE BILIRUBIN NEGATIVE (NEGATIVE); URINE COLOR YELLOW; URINE GLUCOSE (UA) NEGATIVE (NEGATIVE); URINE KETONE NEGATIVE (NEGATIVE); URINE LEUK ESTERASE TRACE (NEGATIVE); URINE NITRITE NEGATIVE (NEGATIVE); URINE PROTEIN TRACE (NEGATIVE); URINE RBC 2 /uL (0-23.9); URINE WBC 29 /uL (0-25.8)
[2020-08-16] MEDS: FERROUS SO4 300 MG/5 ML ORAL SOLN UNIT DOSE CUPS PO SCH (12:24)
[2020-08-16] MEDS: CHOLECALCIFEROL (VIT D3) 5000 UNITS (125 MCG) CAP PO SCH (12:24)
[2020-08-16 13:04] VITALS: BMI 17.3
[2020-08-16] MEDS ORDERED: ROSUVASTATIN CA 20 MG TABLET (FP) PO SCH (22:00)
[2020-08-16] MEDS ORDERED: DOCUSATE SODIUM 100 MG CAPSULE (FP) PO SCH (22:00)
[2020-08-16] MEDS: INSULIN SLIDING SCALE (NOVOLOG) 1 VIAL SQ SCH (23:46)
[2020-08-17] MEDS: INSULIN SLIDING SCALE (NOVOLOG) 1 VIAL SQ SCH ×3 (06:34→17:17)
[2020-08-17] MEDS: CALCIUM 500MG/VIT-D 200 UNITS COMBO TABLET (FP) PO SCH (11:23)
[2020-08-17] MEDS: PANTOPRAZOLE 40 MG TABLET PO SCH (11:23)
[2020-08-17] MEDS: ENOXAPARIN NA (PORCINE) 30 MG/0.3 ML DISP.SYRIN SQ SCH (11:23)
[2020-08-17] MEDS: CHOLECALCIFEROL (VIT D3) 5000 UNITS (125 MCG) CAP PO SCH (11:25)
[2020-08-17] MEDS: FERROUS SO4 300 MG/5 ML ORAL SOLN UNIT DOSE CUPS PO SCH (11:25)
[2020-08-17] MEDS ORDERED: PT OWN MED DRAWER 7, Y5N ONE (11:25)
[2020-08-17 13:17] LABS: BASO % 0.5 % (0-2.0); EOS % 4.9 % (0-4.5); HEMATOCRIT 29.9 % (32.4-45.2); HEMOGLOBIN 9.1 GM/dL (10.7-15.3); LYMPH % 17.8 % (8-40); MCH 23.6 pg (25.7-33.7); MCHC 30.4 g/dl (32.0-36.0); MEAN CELL VOLUME 77.6 fl (80-96); MEAN PLT VOLUME 8.7 fl (7.5-11.1); MONO % 7.9 % (3.8-10.2); NEUT % 68.9 % (42.8-82.8); PLATELET COUNT 361 K/MM3 (134-434); RBC 3.85 M/mm3 (3.60-5.2); WHITE BLOOD COUNT 5.9 K/mm3 (4.0-10.0)
[2020-08-17 13:49] LABS: BLOOD UREA NITROGEN 14.5 mg/dL (7-18); CALCIUM 8.3 mg/dL (8.5-10.1); MAGNESIUM 2.2 mg/dL (1.8-2.4)
[2020-08-17 13:52] LABS: CREATININE 0.7 mg/dL (0.55-1.3)
[2020-08-17 13:54] LABS: BILIRUBIN,TOTAL 0.3 mg/dL (0.2-1); TOT PROT 5.9 g/dl (6.4-8.2)
[2020-08-17 13:55] LABS: ALBUMIN 2.8 g/dl (3.4-5.0)
[2020-08-17 14:16] VITALS: BP 105/57; PULSE 94; TEMP 98.5
[2020-08-17] MEDS: SODIUM CHLORIDE 0.9%/KCL 20 MEQ/1,000 ML INFUS.BAG IV SCH (17:16)
== END 2020-08-17 18:28 | disposition home or self-care (01) ==
LOC: JER 12:53 → JERBED 15:57 → UNDOADMOB 15:57 → INTOOBSV 15:57 → JERBED 08-16 08:21 → J6S 08-16 08:23
PROVIDERS: ADMIT Internal Medicine; ATTEND Nurse Practitioner Acute Care
PROC: 3E0337Z Introduction of Electrolytic and Water Balance Substance into Peripheral Vein, Percutaneous Approach (ICD-10-PCS; principal; 2020-08-16)
PROC: 3E023GC Introduction of Other Therapeutic Substance into Muscle, Percutaneous Approach (ICD-10-PCS; 2020-08-16)
PROC: 3E033GC Introduction of Other Therapeutic Substance into Peripheral Vein, Percutaneous Approach (ICD-10-PCS; 2020-08-16)
DX: I13.0 Hypertensive heart and chronic kidney disease with heart failure and stage 1 through stage 4 chronic kidney disease, or unspecified chronic kidney disease (principal); I48.0 Paroxysmal atrial fibrillation; E87.1 Hypo-osmolality and hyponatremia; E87.6 Hypokalemia; R55 Syncope and collapse; R53.1 Weakness; E78.5 Hyperlipidemia, unspecified; J44.9 Chronic obstructive pulmonary disease, unspecified; Z99.81 Dependence on supplemental oxygen; Z20.822 Contact with and (suspected) exposure to COVID-19; H81.10 Benign paroxysmal vertigo, unspecified ear; Z79.4 Long term (current) use of insulin; D50.0 Iron deficiency anemia secondary to blood loss (chronic); R00.0 Tachycardia, unspecified; Z87.738 Personal history of other specified (corrected) congenital malformations of digestive system; Z29.9 Encounter for prophylactic measures, unspecified
CPT/HCPCS: 36415; 71045-TC-FY; 80048; 80053; 81003; 82248; 82550; 82728; 82962; 83615; 83735; 84443; 84484; 85025; 86140; 87086; 93005; 93010; 93306-TC; 96361; 96365; 96372; 96375; 96376; 97116-GP; 97161-GP; 99285-25; C9803; G0378; U0003; U0005

== ENCOUNTER 2021-04-22 11:19 | Inpatient (IN) | payer OTHER ==
[2021-04-22] MEDS ORDERED: ALBUTEROL SO4 HFA INHALER IH ONE ×2 (12:16→12:27)
[2021-04-22] MEDS ORDERED: methylPREDNISolone NA SUCC 125 MG/2 ML VIAL IVPUSH ONE (12:50)
[2021-04-22 13:10] LABS: BASO % 0.1 % (0-2.0); HEMATOCRIT 23.8 % (32.4-45.2); HEMOGLOBIN 7.5 GM/dL (10.7-15.3); MCH 29.9 pg (25.7-33.7); MCHC 31.7 g/dl (32.0-36.0); MEAN CELL VOLUME 94.3 fl (80-96); MEAN PLT VOLUME 8.5 fl (7.5-11.1); MONO % 5.2 % (3.8-10.2); NEUT % 85.7 % (42.8-82.8); PLATELET COUNT 222 10^3/uL (134-434); RBC 2.52 M/mm3 (3.60-5.2); RDW 13.3 % (11.6-15.6); WHITE BLOOD COUNT 5.8 K/mm3 (4.0-10.0)
[2021-04-22 13:17] LABS: PROTHROMBIN TIME (PATIENT) 11.7 SEC (9.7-13.0)
[2021-04-22] MEDS ORDERED: methylPREDNISolone NA SUCC 125 MG/2 ML VIAL ONE (13:24)
[2021-04-22 13:29] LABS: CHLORIDE 94 mmol/L (98-107); SODIUM 139 mmol/L (136-145)
[2021-04-22 13:31] LABS: CALCIUM 8.9 mg/dL (8.5-10.1)
[2021-04-22 13:32] LABS: ALBUMIN 3.1 g/dl (3.4-5.0); CO2 38 mmol/L (21-32); GLUCOSE,RANDOM 332 mg/dL (74-106)
[2021-04-22 13:35] LABS: CREATININE 2.3 mg/dL (0.55-1.3); SGOT/AST 66 U/L (15-37); SGPT/ALT 70 U/L (13-61)
[2021-04-22 13:36] LABS: BILIRUBIN,TOTAL 0.2 mg/dL (0.2-1)
[2021-04-22 13:37] LABS: TOT PROT 6.5 g/dl (6.4-8.2)
[2021-04-22 13:38] LABS: ALK PHOS 79 U/L (45-117)
[2021-04-22 13:40] LABS: N-TERMINAL BNP 636.8 pg/ml (5-450)
[2021-04-22 13:58] LABS: ANION GAP 7 MMOL/L (8-16)
[2021-04-22] MEDS ORDERED: POTASSIUM CHLORIDE TABS 20 MEQ TABLET.ER (FP) PO ONE ×2 (14:02→14:12)
[2021-04-22] MEDS ORDERED: KCL 10 MEQ IVPB 30 MEQ/300 ML INFUS.BAG IVPB ONE (14:12)
[2021-04-22] MEDS: KCL 10 MEQ IVPB 10 MEQ/100 ML INFUS.BAG IVPB SCH ×3 (14:31→17:54)
[2021-04-22 14:39] LABS: EPI CELLS >36 /uL (0-25.1); HYALINE CASTS 12 /uL (0-3.1); URINE APPEARANCE CLEAR; URINE BACTERIA 19 /uL (0-1359); URINE BILIRUBIN NEGATIVE (NEGATIVE); URINE COLOR YELLOW; URINE GLUCOSE (UA) NEGATIVE (NEGATIVE); URINE KETONE NEGATIVE (NEGATIVE); URINE LEUK ESTERASE NEGATIVE (NEGATIVE); URINE NITRITE NEGATIVE (NEGATIVE); URINE PROTEIN 2+ (NEGATIVE); URINE RBC 11 /uL (0-23.9); URINE UROBILINOGEN 0.2 mg/dL (0.2-1.0); URINE WBC 19 /uL (0-25.8)
[2021-04-22 19:22] LABS: MAGNESIUM 2.7 mg/dL (1.8-2.4)
[2021-04-22] MEDS ORDERED: IRON SUCROSE INJECTION 200 MG in SODIUM CHLORIDE 90 ML IVPB ONE (22:09)
[2021-04-22] MEDS ORDERED: DOCUSATE SODIUM 100 MG CAPSULE (FP) PO ONE (22:13)
[2021-04-22] MEDS ORDERED: SODIUM CHLORIDE 500 ML IV SCH (22:15)
[2021-04-22] MEDS ORDERED: POTASSIUM CHLORIDE ORAL LIQUID 20 MEQ/15 ML PO ONE (22:25)
[2021-04-22] MEDS: SODIUM CHLORIDE 500 ML IV SCH (22:38)
[2021-04-23] MEDS: SODIUM CHLORIDE 500 ML IV SCH ×2 (00:05→23:24)
[2021-04-23 04:01] LABS: HEMATOCRIT 26.7 % (32.4-45.2); HEMOGLOBIN 8.8 GM/dL (10.7-15.3); MCHC 32.8 g/dl (32.0-36.0); MEAN CELL VOLUME 91.5 fl (80-96); MEAN PLT VOLUME 8.6 fl (7.5-11.1); PLATELET COUNT 186 10^3/uL (134-434); RBC 2.92 M/mm3 (3.60-5.2); RDW 13.9 % (11.6-15.6); WHITE BLOOD COUNT 7.7 K/mm3 (4.0-10.0)
[2021-04-23] MEDS ORDERED: POTASSIUM CHLORIDE 10 MEQ PREMIX IVPB (POTASSIUM RIDER) IVPB SCH (06:00)
[2021-04-23] MEDS: POTASSIUM CHLORIDE 10 MEQ PREMIX IVPB (POTASSIUM RIDER) IVPB SCH ×4 (06:20→11:56)
[2021-04-23] MEDS: INSULIN SLIDING SCALE (NOVOLOG) 1 VIAL SQ SCH ×4 (06:27→21:49)
[2021-04-23] MEDS ORDERED: LACTATED RINGERS SOLUTION 1,000 ML/1,000 ML INFUS.BAG IV SCH ×2 (08:00)
[2021-04-23] MEDS ORDERED: IRON SUCROSE INJECTION 200 MG in SODIUM CHLORIDE 90 ML IVPB ONE (09:00)
[2021-04-23 09:08] LABS: HEMATOCRIT 31.3 % (32.4-45.2); HEMOGLOBIN 10.4 GM/dL (10.7-15.3); MCH 30.8 pg (25.7-33.7); MCHC 33.1 g/dl (32.0-36.0); MEAN CELL VOLUME 92.9 fl (80-96); MEAN PLT VOLUME 8.7 fl (7.5-11.1); PLATELET COUNT 202 10^3/uL (134-434); RBC 3.37 M/mm3 (3.60-5.2); RDW 14.2 % (11.6-15.6)
[2021-04-23 09:33] LABS: CALCIUM 8.2 mg/dL (8.5-10.1)
[2021-04-23 09:34] LABS: ALBUMIN 2.5 g/dl (3.4-5.0); BLOOD UREA NITROGEN 20.5 mg/dL (7-18); MAGNESIUM 2.3 mg/dL (1.8-2.4)
[2021-04-23 09:37] LABS: BILIRUBIN,TOTAL 0.4 mg/dL (0.2-1); CREATININE 1.8 mg/dL (0.55-1.3)
[2021-04-23 09:38] LABS: TOT PROT 5.9 g/dl (6.4-8.2)
[2021-04-23] MEDS: PANTOPRAZOLE 40 MG TABLET PO SCH (15:12)
[2021-04-23] MEDS ORDERED: INSULIN (NOVOLOG) ASPART 100 UNITS/ML 10ML VIAL ONE (21:44)
[2021-04-23] MEDS: ROSUVASTATIN CA 10 MG TABLET (FP) PO SCH (21:52)
[2021-04-23] MEDS: DOCUSATE SODIUM 100 MG CAPSULE (FP) PO SCH (21:52)
[2021-04-23] MEDS: POLYETHYLENE GLYCOL (HEALTHYLAX) 3350 17 GM PACKET PO SCH (21:52)
[2021-04-23] MEDS ORDERED: ROSUVASTATIN CA 40 MG TABLET PO SCH (22:00)
[2021-04-24] MEDS: POLYETHYLENE GLYCOL (HEALTHYLAX) 3350 17 GM PACKET PO SCH ×3 (05:52→21:52)
[2021-04-24] MEDS: INSULIN SLIDING SCALE (NOVOLOG) 1 VIAL SQ SCH ×4 (06:56→22:02)
[2021-04-24] MEDS ORDERED: PT OWN MED DRAWER 7, Y5N ONE (09:09)
[2021-04-24] MEDS: ASCORBIC ACID 500 MG TABLET (FP) PO SCH (09:11)
[2021-04-24] MEDS: CALCIUM 500MG/VIT-D 200 UNITS COMBO TABLET (FP) PO SCH (09:11)
[2021-04-24] MEDS: PANTOPRAZOLE 40 MG TABLET PO SCH (09:11)
[2021-04-24] MEDS: AMINO ACIDS/PROTEIN HYDROLYS 30 ML LIQUID.PKT PO SCH ×2 (09:11→16:59)
[2021-04-24] MEDS: CHOLECALCIFEROL (VIT D3) 5000 UNITS (125 MCG) CAP PO SCH (09:13)
[2021-04-24 10:33] LABS: BASO % 0.2 % (0-2.0); EOS % 0.4 % (0-4.5); HEMATOCRIT 30.7 % (32.4-45.2); HEMOGLOBIN 10.2 GM/dL (10.7-15.3); LYMPH % 10.7 % (8-40); MCH 30.9 pg (25.7-33.7); MCHC 33.1 g/dl (32.0-36.0); MEAN CELL VOLUME 93.3 fl (80-96); MEAN PLT VOLUME 8.7 fl (7.5-11.1); NEUT % 82.7 % (42.8-82.8); PLATELET COUNT 219 10^3/uL (134-434); RBC 3.29 M/mm3 (3.60-5.2); RDW 13.8 % (11.6-15.6); WHITE BLOOD COUNT 7.2 K/mm3 (4.0-10.0)
[2021-04-24 11:02] LABS: CALCIUM 8.6 mg/dL (8.5-10.1)
[2021-04-24 11:03] LABS: ALBUMIN 2.4 g/dl (3.4-5.0)
[2021-04-24 11:06] LABS: BILIRUBIN,TOTAL 0.6 mg/dL (0.2-1); CREATININE 1.8 mg/dL (0.55-1.3); TOT PROT 5.6 g/dl (6.4-8.2)
[2021-04-24] MEDS ORDERED: MAGNESIUM CITRATE 300 ML BOTTLE PO ONE (15:45)
[2021-04-24] MEDS: DOCUSATE SODIUM 100 MG CAPSULE (FP) PO SCH (21:52)
[2021-04-24] MEDS: ROSUVASTATIN CA 10 MG TABLET (FP) PO SCH (21:52)
[2021-04-24] MEDS ORDERED: POTASSIUM CHLORIDE TABS 20 MEQ TABLET.ER (FP) PO ONE (23:53)
[2021-04-25] MEDS: POLYETHYLENE GLYCOL (HEALTHYLAX) 3350 17 GM PACKET PO SCH ×3 (06:47→21:30)
[2021-04-25] MEDS: INSULIN SLIDING SCALE (NOVOLOG) 1 VIAL SQ SCH ×4 (06:48→21:30)
[2021-04-25] MEDS: AMINO ACIDS/PROTEIN HYDROLYS 30 ML LIQUID.PKT PO SCH ×2 (08:00→17:20)
[2021-04-25] MEDS: PANTOPRAZOLE 40 MG TABLET PO SCH (14:06)
[2021-04-25] MEDS: CALCIUM 500MG/VIT-D 200 UNITS COMBO TABLET (FP) PO SCH (14:06)
[2021-04-25] MEDS: CHOLECALCIFEROL (VIT D3) 5000 UNITS (125 MCG) CAP PO SCH (14:07)
[2021-04-25] MEDS: ASCORBIC ACID 500 MG TABLET (FP) PO SCH (14:07)
[2021-04-25] MEDS ORDERED: PT OWN MED DRAWER 7, Y5N ONE ×2 (14:34→17:14)
[2021-04-25] MEDS ORDERED: INSULIN (NOVOLOG) ASPART 100 UNITS/ML 10ML VIAL ONE (20:45)
[2021-04-25] MEDS: DOCUSATE SODIUM 100 MG CAPSULE (FP) PO SCH (21:24)
[2021-04-25] MEDS: ROSUVASTATIN CA 10 MG TABLET (FP) PO SCH (21:25)
[2021-04-26] MEDS: POLYETHYLENE GLYCOL (HEALTHYLAX) 3350 17 GM PACKET PO SCH ×3 (06:16→21:39)
[2021-04-26] MEDS: INSULIN SLIDING SCALE (NOVOLOG) 1 VIAL SQ SCH ×4 (07:00→21:39)
[2021-04-26] MEDS: AMINO ACIDS/PROTEIN HYDROLYS 30 ML LIQUID.PKT PO SCH ×2 (09:45→17:22)
[2021-04-26] MEDS: PANTOPRAZOLE 40 MG TABLET PO SCH (09:46)
[2021-04-26] MEDS: CHOLECALCIFEROL (VIT D3) 5000 UNITS (125 MCG) CAP PO SCH (09:46)
[2021-04-26] MEDS: CALCIUM 500MG/VIT-D 200 UNITS COMBO TABLET (FP) PO SCH (09:46)
[2021-04-26] MEDS: ASCORBIC ACID 500 MG TABLET (FP) PO SCH (09:46)
[2021-04-26 10:45] LABS: INR 0.95 (0.83-1.09); PROTHROMBIN TIME (PATIENT) 11.1 SEC (9.7-13.0)
[2021-04-26 11:05] LABS: ALBUMIN 2.4 g/dl (3.4-5.0)
[2021-04-26 11:08] LABS: BILIRUBIN,DIRECT 0.1 mg/dL (0.0-0.2); CREATININE 1.3 mg/dL (0.55-1.3)
[2021-04-26 11:09] LABS: BILIRUBIN,TOTAL 0.4 mg/dL (0.2-1); TOT PROT 5.6 g/dl (6.4-8.2)
[2021-04-26 11:47] LABS: HEMATOCRIT 29.2 % (32.4-45.2); HEMOGLOBIN 9.6 GM/dL (10.7-15.3); MCHC 33.1 g/dl (32.0-36.0); MEAN CELL VOLUME 93.7 fl (80-96); MEAN PLT VOLUME 8.6 fl (7.5-11.1); PLATELET COUNT 209 10^3/uL (134-434); RBC 3.11 M/mm3 (3.60-5.2); RDW 13.8 % (11.6-15.6); WHITE BLOOD COUNT 5.9 K/mm3 (4.0-10.0)
[2021-04-26] MEDS ORDERED: SODIUM CHLORIDE 1,000 ML IV SCH (17:45)
[2021-04-26] MEDS ORDERED: INSULIN (NOVOLOG) ASPART 100 UNITS/ML 10ML VIAL ONE (21:03)
[2021-04-26] MEDS: DOCUSATE SODIUM 100 MG CAPSULE (FP) PO SCH (21:39)
[2021-04-26] MEDS: ROSUVASTATIN CA 10 MG TABLET (FP) PO SCH (21:39)
[2021-04-27] MEDS: INSULIN SLIDING SCALE (NOVOLOG) 1 VIAL SQ SCH ×4 (06:35→21:37)
[2021-04-27] MEDS: POLYETHYLENE GLYCOL (HEALTHYLAX) 3350 17 GM PACKET PO SCH ×3 (06:38→21:28)
[2021-04-27] MEDS ORDERED: PT OWN MED DRAWER 7, Y5N ONE (08:54)
[2021-04-27] MEDS: AMINO ACIDS/PROTEIN HYDROLYS 30 ML LIQUID.PKT PO SCH ×2 (09:15→17:40)
[2021-04-27] MEDS: PANTOPRAZOLE 40 MG TABLET PO SCH (09:15)
[2021-04-27] MEDS: CHOLECALCIFEROL (VIT D3) 5000 UNITS (125 MCG) CAP PO SCH (09:15)
[2021-04-27] MEDS: ASCORBIC ACID 500 MG TABLET (FP) PO SCH (09:15)
[2021-04-27] MEDS: CALCIUM 500MG/VIT-D 200 UNITS COMBO TABLET (FP) PO SCH (09:15)
[2021-04-27 11:12] VITALS: BMI 17.3
[2021-04-27] MEDS ORDERED: BISACODYL 5 MG TABLET.DR (FP) PO ONE (18:05)
[2021-04-27] MEDS: ROSUVASTATIN CA 10 MG TABLET (FP) PO SCH (21:27)
[2021-04-27] MEDS: DOCUSATE SODIUM 100 MG CAPSULE (FP) PO SCH (21:28)
[2021-04-28] MEDS: POLYETHYLENE GLYCOL (HEALTHYLAX) 3350 17 GM PACKET PO SCH ×2 (06:09→13:42)
[2021-04-28] MEDS: INSULIN SLIDING SCALE (NOVOLOG) 1 VIAL SQ SCH ×3 (06:12→17:07)
[2021-04-28] MEDS ORDERED: PT OWN MED DRAWER 7, Y5N ONE (09:10)
[2021-04-28] MEDS: CALCIUM 500MG/VIT-D 200 UNITS COMBO TABLET (FP) PO SCH (09:44)
[2021-04-28] MEDS: ASCORBIC ACID 500 MG TABLET (FP) PO SCH (09:44)
[2021-04-28] MEDS: AMINO ACIDS/PROTEIN HYDROLYS 30 ML LIQUID.PKT PO SCH ×2 (09:44→17:09)
[2021-04-28] MEDS: PANTOPRAZOLE 40 MG TABLET PO SCH (09:44)
[2021-04-28] MEDS: CHOLECALCIFEROL (VIT D3) 5000 UNITS (125 MCG) CAP PO SCH (09:44)
[2021-04-28 12:15] LABS: BASO % 0.4 % (0-2.0); EOS % 0.4 % (0-4.5); HEMATOCRIT 28.8 % (32.4-45.2); HEMOGLOBIN 9.2 GM/dL (10.7-15.3); LYMPH % 14.7 % (8-40); MCH 30.8 pg (25.7-33.7); MEAN CELL VOLUME 96.4 fl (80-96); MEAN PLT VOLUME 8.3 fl (7.5-11.1); MONO % 6.3 % (3.8-10.2); NEUT % 78.2 % (42.8-82.8); PLATELET COUNT 194 10^3/uL (134-434); RBC 2.99 M/mm3 (3.60-5.2); RDW 14.2 % (11.6-15.6); WHITE BLOOD COUNT 4.8 K/mm3 (4.0-10.0)
[2021-04-28 12:35] LABS: CALCIUM 8.7 mg/dL (8.5-10.1)
[2021-04-28 12:36] LABS: ALBUMIN 2.2 g/dl (3.4-5.0); BLOOD UREA NITROGEN 16.9 mg/dL (7-18); MAGNESIUM 2.4 mg/dL (1.8-2.4)
[2021-04-28 12:39] LABS: CREATININE 0.9 mg/dL (0.55-1.3)
[2021-04-28 12:41] LABS: BILIRUBIN,TOTAL 0.3 mg/dL (0.2-1); TOT PROT 5.2 g/dl (6.4-8.2)
[2021-04-28 14:23] VITALS: BP 108/62; PULSE 84; TEMP 98.9
== END 2021-04-28 21:08 | disposition home or self-care (01) | DRG 682 ==
LOC: JER 11:19 → JERBED 14:06 → J6S 21:05
PROVIDERS: ADMIT Internal Medicine; ATTEND Nurse Practitioner Family
PROC: 30233N1 Transfusion of Nonautologous Red Blood Cells into Peripheral Vein, Percutaneous Approach (ICD-10-PCS; 2021-04-22)
PROC: 0DB78ZX Excision of Stomach, Pylorus, Via Natural or Artificial Opening Endoscopic, Diagnostic (ICD-10-PCS; principal; 2021-04-26 12:30)
DX: N17.9 Acute kidney failure, unspecified (principal); K25.4 Chronic or unspecified gastric ulcer with hemorrhage; M62.82 Rhabdomyolysis; E87.3 Alkalosis; I31.3 Pericardial effusion (noninflammatory); R64 Cachexia; Z68.1 Body mass index [BMI] 19.9 or less, adult; I13.0 Hypertensive heart and chronic kidney disease with heart failure and stage 1 through stage 4 chronic kidney disease, or unspecified chronic kidney disease; J44.9 Chronic obstructive pulmonary disease, unspecified; I48.91 Unspecified atrial fibrillation; E78.5 Hyperlipidemia, unspecified; Z99.81 Dependence on supplemental oxygen; K64.4 Residual hemorrhoidal skin tags; E87.6 Hypokalemia; E11.65 Type 2 diabetes mellitus with hyperglycemia; R55 Syncope and collapse; E11.22 Type 2 diabetes mellitus with diabetic chronic kidney disease; N18.9 Chronic kidney disease, unspecified; I50.9 Heart failure, unspecified; R60.0 Localized edema; K40.90 Unilateral inguinal hernia, without obstruction or gangrene, not specified as recurrent; K57.90 Diverticulosis of intestine, part unspecified, without perforation or abscess without bleeding; D50.0 Iron deficiency anemia secondary to blood loss (chronic); H81.10 Benign paroxysmal vertigo, unspecified ear; K59.00 Constipation, unspecified; R79.89 Other specified abnormal findings of blood chemistry; I48.0 Paroxysmal atrial fibrillation; T39.395A Adverse effect of other nonsteroidal anti-inflammatory drugs [NSAID], initial encounter; W18.30XA Fall on same level, unspecified, initial encounter; Y92.098 Other place in other non-institutional residence as the place of occurrence of the external cause
CPT/HCPCS: 36415; 36430; 36511; 70450-TC; 71045-TC-FY; 72125-TC; 76705-TC; 80048; 80053; 80061; 80076; 81003; 82272; 82550; 82553; 82962; 83010; 83036; 83540; 83550; 83735; 83880; 84439; 84443; 84484; 85025; 85027; 85610; 85730; 86704; 86803; 86850; 86900; 86901; 86922; 87086; 87340; 87517; 87804; 88305-TC; 93005; 93010; 93306-TC; 93880-TC; 97116-GP; 97162-GP; 99285-25; C9803; J1756; P9038; P9058; U0003; U0005

== ENCOUNTER 2022-06-20 04:30 | Emergency (ER) | payer OTHER ==
[2022-06-20 04:54] VITALS: BMI 14.6
[2022-06-20] MEDS ORDERED: SODIUM CHLORIDE 0.9% 500 ML INFUS.BAG IV ONE (04:59)
[2022-06-20] MEDS ORDERED: PIPERACILLIN/TAZOB 3.375 GM 3.375 GM in DEXTROSE 5%-WATER - 50 ML IVPB ONE ×2 (05:42→06:14)
[2022-06-20] MEDS ORDERED: VANCOMYCIN 1 GM in D5W (PRE-DOCKED) 1,000 MG/250 ML IVPB ONE (05:42)
[2022-06-20] MEDS ORDERED: PIPERACILLIN/TAZOB 3.375 GM 3.375 GM/50 ML BAG IVPB ONE (05:51)
[2022-06-20] MEDS ORDERED: VANCOMYCIN/WATER FOR INJ (PEG) 1,000 MG/200 ML BAG IVPB ONE (05:53)
[2022-06-20 06:05] LABS: BASO % 0.6 % (0-2.0); EOS % 0.1 % (0-4.5); HEMATOCRIT 19.2 % (32.4-45.2); MCH 22.8 pg (25.7-33.7); MCHC 27.5 g/dl (32.0-36.0); MEAN CELL VOLUME 82.9 fl (80-96); MEAN PLT VOLUME 9.5 fl (7.5-11.1); MONO % 8.6 % (3.8-10.2); NEUT % 76.7 % (42.8-82.8); PLATELET COUNT 304 10^3/uL (134-434); RBC 2.31 M/mm3 (3.60-5.2); RDW 19.2 % (11.6-15.6); WHITE BLOOD COUNT 4.8 K/mm3 (4.0-10.0)
[2022-06-20 06:08] LABS: EPI CELLS 5 /uL (0-25.1); HYALINE CASTS 3 /uL (0-3.1); URINE APPEARANCE TURBID; URINE BACTERIA 2979 /uL (0-1359); URINE BILIRUBIN NEGATIVE (NEGATIVE); URINE COLOR YELLOW; URINE GLUCOSE (UA) NEGATIVE (NEGATIVE); URINE KETONE NEGATIVE (NEGATIVE); URINE LEUK ESTERASE 3+ (NEGATIVE); URINE NITRITE NEGATIVE (NEGATIVE); URINE PROTEIN 2+ (NEGATIVE); URINE UROBILINOGEN 0.2 mg/dL (0.2-1.0); URINE WBC 17683 /uL (0-25.8)
[2022-06-20 06:12] LABS: HEMOGLOBIN 5.3 GM/dL (10.7-15.3)
[2022-06-20 06:23] LABS: VENOUS BASE EXCESS 1.8 mmol/L (-2-2); VENOUS O2 SATURATION 37.3 % (70-80)
[2022-06-20 06:24] LABS: CALCIUM 8.1 mg/dL (8.5-10.1)
[2022-06-20 06:26] LABS: ALBUMIN 2.5 g/dl (3.4-5.0); BLOOD UREA NITROGEN 39.3 mg/dL (7-18)
[2022-06-20 06:29] LABS: CREATININE 3.1 mg/dL (0.55-1.3)
[2022-06-20 06:30] LABS: BILIRUBIN,TOTAL 0.1 mg/dL (0.2-1)
[2022-06-20 06:31] LABS: TOT PROT 5.6 g/dl (6.4-8.2); VENOUS PCO2 94.2 mmHg (38-52); VENOUS PH 7.138 (7.310-7.410)
[2022-06-20 08:43] LABS: INR 0.95 (0.83-1.09)
[2022-06-20 08:45] LABS: ACTIVATED PTT 29.3 SECONDS (25.2-36.5)
[2022-06-20 10:17] VITALS: TEMP 93.4
[2022-06-20 10:18] VITALS: BP 91/34; PULSE 58; RESP 14
[2022-06-20 10:33] LABS: URINE RBC 305 /uL (0-23.9); YEAST NEGATIVE (NEGATIVE)
== END 2022-06-20 07:45 | disposition short-term general hospital (02) ==
LOC: JER 04:30
PROC: 3E033GC Introduction of Other Therapeutic Substance into Peripheral Vein, Percutaneous Approach (ICD-10-PCS; principal; 2022-06-20)
DX: I31.4 Cardiac tamponade (principal); N30.01 Acute cystitis with hematuria; D64.89 Other specified anemias
CPT/HCPCS: 0241U-QW; 36415; 71045-TC-FY; 80053; 81003; 82550; 82553; 82803; 82962; 83605; 83880; 84484; 85025; 85610; 85730; 86850; 86900; 86901; 86922; 87040; 87086; 87186; 93005; 93010; 99285-25; P9058